=== PATIENT | female | born 1950 | race Caucasian/White ===

== ENCOUNTER 2017-07-28 12:10 | Emergency (ER) | payer OTHER ==
[~2017-07-28] VITALS: Ht 172.7 cm; Wt 82.6 kg
[~2017-07-28 12:10] MED LIST: ASPIRIN81 M2 PO; CALCIUM 600 +1 EAC1 PO; FISH OIL 1,2001 EAC4 PO; HYDROCODON-ACE1 EAC7 PO; LUTEIN-ZEAXANT1 EACH PO; MOBIC15 MG PO; MULTI-VITAMIN1 EAC5 PO; SERTRALINE HCL100 MG PO
[2017-07-28 12:13] VITALS: BP 124/68
[2017-07-28] MEDS ORDERED: FLEXERIL PO (12:20)
[2017-07-28] MEDS ORDERED: KEFLEX500 M1 PO (12:36)
== END 2017-07-28 12:40 | disposition home or self-care (01) ==
LOC: ER 12:10
DX: S69.92XA Unspecified injury of left wrist, hand and finger(s), initial encounter (principal); W31.89XA Contact with other specified machinery, initial encounter; Y93.89 Activity, other specified; Y92.89 Other specified places as the place of occurrence of the external cause; Y99.8 Other external cause status

== ENCOUNTER → 2018-09-27 | Outpatient (CLI) | payer OTHER ==
[~2018-09-27] MED LIST changes: +FLEXERIL PO; +KEFLEX500 M1 PO
== END ==
LOC: MRI 09:49
DX: S83.271A Complex tear of lateral meniscus, current injury, right knee, initial encounter (principal); S83.241A Other tear of medial meniscus, current injury, right knee, initial encounter; M17.11 Unilateral primary osteoarthritis, right knee; M25.461 Effusion, right knee; M94.261 Chondromalacia, right knee; M25.761 Osteophyte, right knee; X58.XXXA Exposure to other specified factors, initial encounter; Y93.89 Activity, other specified; Y92.89 Other specified places as the place of occurrence of the external cause; Y99.8 Other external cause status